=== PATIENT | female | born 1975 | race Caucasian/White ===

== ENCOUNTER 2019-12-27 09:43 | Day surgery (SDC) | payer BC ==
[2019-12-23 14:01] VITALS: BMI 28.6
[2019-12-27 10:01] VITALS: TEMP 98.5
[2019-12-27] MEDS ORDERED: LIDOCAINE HCL/PF 2% SDV 5ML VIAL ONE (10:32)
[2019-12-27 12:17] VITALS: BP 114/77; PULSE 69
== END 2019-12-27 12:30 | disposition home or self-care (01) ==
LOC: FASU 09:43
PROVIDERS: ATTEND Internal Medicine Gastroenterology
PROC: 0DJ08ZZ Inspection of Upper Intestinal Tract, Via Natural or Artificial Opening Endoscopic (ICD-10-PCS; principal; 2019-12-27 11:23)
DX: K26.3 Acute duodenal ulcer without hemorrhage or perforation (principal)
CPT/HCPCS: 84703